=== PATIENT | male | born 1960 | race Caucasian/White ===

== ENCOUNTER 2022-07-05 09:54 | Observation (INO) ==
--- NOTE | 2022-06-08 11:29 | Anesthesiology Consultation ---
Date of Service June 08, 2022 Assessment & Plan (1) Encounter for pre-operative examination: Chart Review Chart Review: Acceptable Risk for Surgery and Patient NOT seen in Pre Admission Testing Per nursing assessment 05/31/22, patient denies any recent travel. No known Covid positive exposures or Covid related symptoms. No known Covid infection in the past 90 days. Pt is fully vaccinated for Covid. Will leave to surgeon's discretion if preop Covid testing needed History Surgery Operation Date: 06/03/22 08:05 Proposed Procedures p Cystoscopy, Ureteronephroscopy, Retrograde Pyelogram, with Possible Ureteral Dilation, Laser Destruction or Extraction of the Stone, Insertion or Exchange of Stent Catheter - Right - Destin García MD Operation Date: 07/05/22 11:45 Proposed Procedures p Robotic Laparoscopic Assisted Partial Nephrectomy - Left - Destin García MD Pt scheduled for Robotic Laparoscopic Assisted Partial Nephrectomy - Left- on 07/05/22 Height/Weight Height: 5 ft 7.5 in Weight: 102.058 kg Allergies Allergy/AdvReac Type Severity Reaction Status Date / Time Penicillins Allergy Intermediate HIVES Verified 06/06/22 08:52 Medications Home Medications Medication Instructions Recorded Confirmed Last Taken levothyroxine 50 mcg tablet 50 mcg PO QAM 11/18/20 06/06/22 Unknown sildenafil 100 mg tablet 100 mg PO DAILY PRN sexual 05/30/22 05/31/22 Unknown activity #20 tabs silodosin 8 mg capsule 8 mg PO DAILY #90 caps 05/30/22 06/06/22 Unknown aspirin 81 mg tablet 81 mg PO QAM 05/31/22 06/06/22 Unknown Past Medical History Medical History Benign localized prostatic hyperplasia with lower urinary tract symptoms (LUTS) 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 Hypothyroidism Kidney stones 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) hx w/ surgery Past Family History Family History Other No pertinent family history Past Surgical History Surgical History H/O knee surgery right History of mandibular surgery History of surgery Destruction of Malignant Lesion Arms X 3 - cutaneous lymphoma History of tonsillectomy and adenoidectomy Hx of lithotripsy S/P carpal tunnel release S/P colonoscopy Social History Smoking Status: Never smoker tobacco type: smokeless tobacco Do You Dip or Chew Tobacco: Yes (ADVISED) Hx Alcohol Use: No Hx Substance Use: No substance use type: does not use Testing Laboratory Results 05/31/22= WBC: 7.6 H/H: 16.1/45.9 PLATELETS: 258 SODIUM: 140 POTASSIUM: 4.2 CHLORIDE: 108 CO2: 24 BUN: 15 CREATININE: 1.0 GLUCOSE: 98 UA: Trace blood URINE CULTURE: <10,000 mixed bacterial alfonzo Electrocardiogram Date: 05/31/22 Findings: + NSR @ (75bpm ) Normal EKG per confirming provider Chest X-Ray Date: 05/31/22 Findings: + NAD Other Testing Abdomen/Pelvis CT 05/27/22= There is a 4 mm obstructing calculus at the right vesicoureteral junction. This causes mild right hydroureter. Additional nonobstructing bilateral renal calculi. There is a 5.1 cm complex enhancing lesion arising from the lower pole of the left kidney. This is highly concerning for a renal cell carcinoma and follow-up with urology is recommended. Colonic diverticulosis without CT evidence of acute diverticulitis. There are 2 pulmonary nodules seen at the lung bases measuring up to 4 mm. These are pathologically indeterminant but of low suspicion. Consider a follow-up chest CT in 3-6 months time for reassessment and full evaluation of the thorax. (Pt has since passed the kidney stone per 06/06/22 urology note)
[~2022-07-05 09:54] MED LIST: CIPROFLOXACIN / D5W 400 MG/200 ML BAG IV SCH; CLINDAMYCIN IV SCH; D5W IV SCH; LR 15ML/HR IV SCH; PREMIXED IV SCH
[2022-07-05] MEDS ORDERED: MIDAZOLAM HCL 1 MG/ML 2ML VIAL ONE (10:20)
[2022-07-05] MEDS ORDERED: fentaNYL citrate 100 MCG/2 ML VIAL ONE ×3 (10:20→14:16)
[2022-07-05] MEDS ORDERED: LIDOCAINE 2% 20 MG/ML 5 ML SYR IV ONE (10:20)
[2022-07-05] MEDS ORDERED: PROPOFOL IV EMULSION 10 MG/ML 20 ML VIAL IV ONE (10:20)
[2022-07-05] MEDS ORDERED: ROCURONIUM BROMIDE 10 MG/ML 5 ML VIAL IV ONE ×3 (10:20→15:56)
[2022-07-05] MEDS ORDERED: HYDROmorphone INJ 1 MG/ML SYRINGE IV PRN (11:33)
[2022-07-05] MEDS ORDERED: ONDANSETRON INJ 2 MG/ML 2 ML VIAL IV PRN (11:33)
[2022-07-05] MEDS ORDERED: ATROPINE SULFATE 0.1 MG/ML 10ML SYR IV PRN (11:33)
[2022-07-05] MEDS ORDERED: ePHEDrine sulfate 50 MG/ML AMP IV PRN (11:33)
--- NOTE | 2022-07-05 11:38 | History & Physical Bridge Note ---
Date of Service July 05, 2022 History & Physical Bridge Note I have examined the patient, reviewed the History & Physical and in the interval since the performance of the History & Physical I have noted the following changes of clinical significance: no changes noted
[2022-07-05] MEDS ORDERED: MANNITOL 25% 12.5 GM/50 ML VIAL IV ONE ×2 (11:49→12:27)
[2022-07-05] MEDS ORDERED: ACETAMINOPHEN 1000 MG/100 ML IV IV ONE (11:49)
[2022-07-05] MEDS ORDERED: SUGAMMADEX SODIUM 200 MG/2 ML VIAL IV ONE (11:50)
[2022-07-05] MEDS ORDERED: Nursing to Pharmacy Communication SCH (12:15)
[2022-07-05] MEDS ORDERED: BUPIVACAINE 0.5 % 5 MG/1 ML MPF 30ML VIAL ONE (12:22)
[2022-07-05] MEDS ORDERED: KETAMINE 50 MG/5 ML SYRINGE ONE (13:45)
[2022-07-05] MEDS ORDERED: TISSEEL FIBRIN SEALANT 10ML TOP ONE (14:49)
[2022-07-05] MEDS ORDERED: FLOSEAL HEMOSTATIC MATRIX 10ML TOP ONE (14:52)
[2022-07-05] MEDS ORDERED: SURGICEL ABSORB HEMOSTAT 2IN X 14IN TOP ONE (15:54)
[2022-07-05] MEDS ORDERED: ONDANSETRON INJ 2 MG/ML 2 ML VIAL ONE (16:10)
[2022-07-05] MEDS ORDERED: HYDROmorphone INJ 2 MG/ML SYR/VIAL ONE (16:11)
[2022-07-05] MEDS ORDERED: PHENYLEPHRINE 100MCG/ML 5ML SYR ONE (16:18)
--- NOTE | 2022-07-05 17:01 | Operative Report ---
PG Post Operative Report Pre & Post Diagnosis Operation Date: 06/03/22 08:05 <No data on this case meets the specified criteria> Operation Date: 07/05/22 11:25 Pre-Op Diagnosis: Left Renal Mass Post-Op Diagnosis: Left Renal Mass I identified the patient and participated in the time-out.: Yes Procedure Operation Date: 06/03/22 08:05 <No data on this case meets the specified criteria> Operation Date: 07/05/22 11:25 Actual Procedures p Robotic Laparoscopic Assisted Partial Nephrectomy - Left(Left) - Destin García MD Surgeon Destin García MD Purchasing Contracting Clerk Mimi Sanchez; Daisy Henderson Estimated Blood Loss 150 Findings Consistent with Post-Op Diagnosis Specimens Left renal mass Description of Procedure Patient was identified in the preoperative holding area, appropriate informed consents reviewed and completed and he was transported to the operating suite. Upon arrival he was placed in a lateral decubitus position with [id number] left side up. Adequate general anesthesia was achieved and he received clindamycin as a perioperative antibiotic. Veress needle was passed into the left upper quadrant and insufflation achieved. I marked ports in a standard robotic partial nephrectomy fashion and entered in the anticipated location of the camera port. Inspection revealed limited to healthy abdomen. Other ports were placed under direct vision. We then docked the robot and began to mobilize the colon. Mobilizing the colon helped to create some space but he has a large kidney with a significant mount of perinephric fat that continued to pose some challenges. We were able to dissect medial to the kidney and identify the gonadal vein. The anterior surface of the gonadal vein was followed until it encountered the inferior aspect of the renal vein. Just medial to this we were able to identify the aorta and an anterior arterial branch below the renal vein. Inspection of the imaging confirmed that there are 2 arteries with this being the lower of the 2. The main artery was identified just posterior to the main vein. After skeleton izing all the structures we turned our attention to the kidney. Took some meticulous dissection to be able to carry through the thick Gerota's fascia and identify the renal capsule. I expose the anterior surface of the kidney first followed by the lateral, inferior, medial and ultimately posterior aspects. As we performed this dissection I was able to visualize the tumor. I additionally performed ultrasound evaluation on multiple occasions to confirm my dissection was headed in appropriate path and exposing an appropriate amount of kidney. After completely exposing the mass and healthy parenchyma above the mass as well as the hilar structures, we prepared for the actual partial nephrectomy. 3 sutures were prepositioned into the abdomen. 12.5 g of mannitol was administered. We then placed a short curved bulldog clamp across the main artery followed by a short straight bulldog across the secondary artery and a long straight bulldog across the main renal vein. Functionally, I then performed a lower pole heminephrectomy versus resection of a third of the kidney. Care was taken to avoid encroachment upon the tumor and there was no tumor visualized on the deep margin of this resection. After entirely freeing the lower portion of the kidney, kidney reconstruction was initiated. I performed this closure in 2 layers running an additional deep layer which closed some of the collecting system and the vascular elements. I then closed the superficial elements utilizing a sliding clip technique. There were approximately 6 sutures passed across the kidney for full closure. We then unclamped the kidney in the reverse order in which it was clamped. Hemostasis was excellent. Warm ischemia time was 25 minutes. We immediately saw the kidney pink and returned to an appropriate color. At that time the kidney was collected in an Endo Catch bag. Floseal was placed over the defect followed by a small sheet of Surgicel and Tisseel. Gerota's fascia was partially reconstructed over the kidney. The robotic portion of the case was then concluded and we extracted the specimen through expansion of the lower medical assistant float port. This medical assistant float port was placed initially through a portion of the rectus muscle and I proceeded to close the oblique fascia as well as the rectus muscle. The rectus was closed posteriorly and anteriorly. Skin was then reapproximated, infiltrated with half percent Marcaine, and then closed with 4-0 Monocryl and Dermabond. At the end of the case patient was reversed of anesthesia and taken to the recovery room in stable condition. There were no complications. Mimi Sanchez and Daisy Henderson assisted from incision to closure. I attest to the content of the Intraoperative Record and any orders documented therein. Any exceptions are noted below.
[2022-07-05] MEDS: fentaNYL citrate 100 MCG/2 ML VIAL IV PRN ×3 (17:12→17:27)
[2022-07-05 17:19] LABS: Hematocrit (blood only) 39.9 % (40.1-51.0); Mean Corpuscular Hemoglobin 29.7 pg (25.0-34.0); Mean Corpuscular Hgb Conc 35.1 g/dL (32.0-36.0); Mean Corpuscular Volume 84.7 fL (80.0-100.0); Mean Platelet Volume 9.8 fL (9.4-12.4); Platelet Count 212 K/uL (130-400); RDW Coefficient of Variation 12.8 % (11.5-14.5); RDW Standard Deviation 39.7 fL (36.4-46.3); Red Blood Count 4.71 M/uL (4.63-6.08); White Blood Count 14.18 K/ul (4.8-10.8)
--- NOTE | 2022-07-05 17:32 | Anesthesiology Progress Note ---
Date of Service July 05, 2022 Anesthesia Post Procedure Vital Signs Vital Signs: Temp Pulse Resp BP Pulse Ox O2 Del Method O2 Flow Rate 07/05/22 17:20 85 18 129/74 95 Oxymask 5 07/05/22 17:10 84 18 130/76 96 Oxymask 5 07/05/22 17:00 79 18 115/72 95 Oxymask 5 07/05/22 16:53 36.7 C 81 18 120/72 96 Oxymask 5 07/05/22 10:14 36.8 C 75 20 140/95 98 Room Air Transfer of Care Handoff Completed per policy Notes Mental Status: alert / awake / arousable and participated in evaluation Patient Amnestic to Procedure: Yes Nausea / Vomiting: adequately controlled Pain: adequately controlled Airway Patency, RR, SpO2: stable & adequate BP & HR: stable & adequate Hydration State: stable & adequate Anesthetic Complications: no major complications apparent and Pt Satisfied with anesthetic care
[2022-07-05 17:35] LABS: Basophils # (auto) 0.04 K/uL (0-0.2); Basophils % (auto) 0.3 %; Eosinophils # (auto) 0.03 K/uL (0-0.50); Eosinophils % (auto) 0.2 %; Immature Granulocytes # (auto) 0.07 K/uL (0.00-0.02); Immature Granulocytes % (auto) 0.5 %; Lymphocytes # (auto) 0.82 K/uL (1.2-3.4); Lymphocytes % (auto) 5.8 %; Monocytes # (auto) 0.13 K/uL (0.24-0.82); Monocytes % (auto) 0.9 %; Neutrophils # (auto) 13.09 K/uL (1.4-6.5); Neutrophils % (auto) 92.3 %
[2022-07-05 17:39] LABS: BUN Creatinine Ratio 13.7 (10-20); Calcium 8.5 mg/dl (8.5-10.1); Est GFR (African American) 90.2 ml/min; Est GFR (Non-African American) 77.9 ml/min; Potassium 4.6 mmol/L (3.5-5.1)
[2022-07-05] MEDS: ALLERGY Noted to ORDERED Medication SCH ×5 (17:41→17:58)
[2022-07-05] MEDS ORDERED: HYDROmorphone INJ 0.5 MG/0.5 ML SYR ONE (17:53)
[2022-07-05] MEDS ORDERED: MoRPHine SULFATE 2 MG/ML CARP IV PRN (18:07)
[2022-07-05] MEDS ORDERED: CLINDAMYCIN PHOS 900 MG/6 ML VIAL IV SCH (18:07)
[2022-07-05] MEDS ORDERED: MoRPHine SULFATE 2 MG/ML CARP ONE (18:12)
[2022-07-05] MEDS: MoRPHine SULFATE 4 MG/ML 1 ML CARP\\VIAL IV PRN ×2 (18:13→22:38)
[2022-07-05] MEDS: LACTATED RINGER'S 1,000 ML IV SCH (18:43)
[2022-07-05] MEDS: ACETAMINOPHEN 325 MG TAB PO SCH (18:46)
[2022-07-05] MEDS: oxyCODONE HCL IR 5 MG TAB (IMMEDIATE RELEASE) PO PRN (19:56)
[2022-07-05] MEDS: CLINDAMYCIN/D5W 600 MG/50 ML PREMIX BAG IV SCH (19:57)
[2022-07-05] MEDS: ONDANSETRON INJ 2 MG/ML 2 ML VIAL IV PRN (22:43)
[2022-07-06] MEDS: ACETAMINOPHEN 325 MG TAB PO SCH ×3 (01:01→12:34)
[2022-07-06] MEDS: LACTATED RINGER'S 1,000 ML IV SCH ×4 (01:02→23:36)
[2022-07-06] MEDS: oxyCODONE HCL IR 5 MG TAB (IMMEDIATE RELEASE) PO PRN ×5 (01:06→22:07)
[2022-07-06] MEDS: CLINDAMYCIN/D5W 600 MG/50 ML PREMIX BAG IV SCH ×2 (03:49→12:33)
[2022-07-06] MEDS: LEVOTHYROXINE SODIUM 50 MCG TABLET PO SCH (06:24)
[2022-07-06] MEDS: ONDANSETRON INJ 2 MG/ML 2 ML VIAL IV PRN ×2 (07:08→16:57)
[2022-07-06] MEDS: ALLERGY Noted to ORDERED Medication SCH (07:15)
[2022-07-06 08:11] LABS: Basophils # (auto) 0.01 K/uL (0-0.2); Basophils % (auto) 0.1 %; Hematocrit (blood only) 37.6 % (40.1-51.0); Hemoglobin 12.7 g/dl (14.0-18.0); Immature Granulocytes # (auto) 0.07 K/uL (0.00-0.02); Immature Granulocytes % (auto) 0.6 %; Lymphocytes # (auto) 1.06 K/uL (1.2-3.4); Lymphocytes % (auto) 9.1 %; Mean Corpuscular Hemoglobin 29.3 pg (25.0-34.0); Mean Corpuscular Hgb Conc 33.8 g/dL (32.0-36.0); Mean Corpuscular Volume 86.6 fL (80.0-100.0); Mean Platelet Volume 10.4 fL (9.4-12.4); Monocytes # (auto) 0.82 K/uL (0.24-0.82); Monocytes % (auto) 7.1 %; Neutrophils # (auto) 9.66 K/uL (1.4-6.5); Neutrophils % (auto) 83.1 %; Platelet Count 238 K/uL (130-400); RDW Coefficient of Variation 12.9 % (11.5-14.5); RDW Standard Deviation 40.3 fL (36.4-46.3); Red Blood Count 4.34 M/uL (4.63-6.08); White Blood Count 11.62 K/ul (4.8-10.8)
[2022-07-06 08:45] LABS: BUN Creatinine Ratio 12.8 (10-20); Calcium 8.4 mg/dl (8.5-10.1); Creatinine Clr Calc Pharmacy 59.5 ml/min; Est GFR (African American) 57.1 ml/min; Est GFR (Non-African American) 49.2 ml/min
[2022-07-06] MEDS ORDERED: LEVOTHYROXINE SODIUM 50 MCG TABLET PO SCH (09:00)
[2022-07-06] MEDS: MoRPHine SULFATE 4 MG/ML 1 ML CARP\\VIAL IV PRN ×2 (09:36→14:21)
--- NOTE | 2022-07-06 11:27 | Urology Progress Note ---
Date of Service July 06, 2022 Assessment & Plan (1) Renal mass: Plan POD #1 s/p partial nephrectomy doing ok cont cath and IVF for now ambulate labs stable Admission and Anticipated Discharge Date Admission Date: July 05, 2022 Subjective doing ok after his partial nephrectomy some pain not hungry slightly nauseated slightly distended urine with a some blood - as expected Physical Exam Physical Exam: distended, but not acute incisions appropriate Results & Data ([facility]) Vital Signs (Past 12 Hours) Vital Signs Temp Pulse Resp BP Pulse Ox O2 Del Method O2 Flow Rate 07/06/22 07:51 36.8 C 90 16 119/74 94 Room Air 07/06/22 03:51 36.6 C 97 H 16 105/72 98 Nasal Cannula 2 PG Care Time/CCT Total # of Minutes Spent Total Time Spent with Patient: Total time spent is greater than 50% in coordination of care (as documented) at patient's floor/unit and/or counseling patient: Coding Level of Care Code None Diagnoses Renal mass N28.89
--- NOTE | 2022-07-06 14:06 | Hospitalist Consultation ---
Date of Consultation July 06, 2022 Assessment & Plan (1) Pre-syncope: Manjinder is a 62-year-old male with a past medical history of tinnitus, ureteral stones, renal mass, BPH who presented for scheduled lap assisted partial nephrectomy of a left renal mass on 07/05/2022. Syncope, suspected vasovagal Patient reports that he had tunnel vision and a prodrome of lightheadedness and did not pass out/lose consciousness completely. He was attempting to sit up from bed and had just received pain medicine shortly before this episode. 1 episode prior for lightheadedness/dizziness Hemoglobin 12.7 from baseline 14.0 preop subsequently stable Downtrending mild leukocytosis, likely reactive patient is on periprocedural clindamycin Creatinine baseline 1.02, postoperative 1.49 Glucose 158/141 Preop EKG: Normal sinus rhythm, QTC 426, no ST segment changes or territorial T wave changes. Repeat EKG pending Patient does have significantly increased abdominal pain postoperatively, reviewed with urology and given the extent of his surgery on reexamination feel this is appropriate for his operative course. Did discuss CT for evaluation, as long as hemoglobin remained stable and recheck has been currently stable 12.7 and clinical exam does not worsen may defer this at this time. Reviewed above with primary team, strongly suspicious for vasovagal while standing and with narcotic medication. We will follow work-up above and medicine sign off, if any concerns on repeat evaluation they will reach out for reassessment at that point. Left renal mass, s/p partial nephrectomy 07/05/2022 Management via primary team Continues on clindamycin every 8 hours CTA/P furred as noted Creatinine rise to 1.65 is expected and appropriate given clamping time and partial nephrectomy, did discuss [id number]. Trend at this time. Hypothyroidism Continue Synthroid 50 mcg p.o. every morning BPH On silodosin 8 mg BODY HANGER Temporarily held given vasovagal symptoms above, resume tomorrow if doing well Aspirin therapy Patient denies history of heart disease, vascular disease, colorectal cancer, family history of colorectal cancer, and strokes. Was recommended after age 50 to be on a daily aspirin. He last took this 06/27. Continue to hold DVT prophylaxis: Per primary team, SCDs Diet: Clears, supplemental IVF at 100 cc/h (2) Renal mass: (3) Tinnitus: (4) Benign localized prostatic hyperplasia with lower urinary tract symptoms (LUTS): History of Present Illness Attending Physician: Destin García MD History of Present Illness Manjinder is a 62-year-old male with a past medical history of tinnitus, ureteral stones, renal mass, BPH who presented for scheduled lap assisted partial nephrectomy of a left renal mass on 07/05/2022. Per op report: Required meticulous dissection of fascia, good hemostasis was achieved, and nephrectomy was uncomplicated with approximately 150 cc of blood loss. Patient seen at the bedside after transfer to [facility]. Patient earlier in the day was a code purple for a near syncopal event. Per patient and nursing staff patient was attempting to sit up at the side of the bed and got very lightheaded/dizzy and passed out. Reported his vasovagal syncope, patient reports that he did not pass out completely but did get very tired, have tunnel vision, and needed to lay back in bed and felt like this last for a couple of minutes. He had felt a little bit lightheaded in the morning after his pain medication as well, and notes that he did get morphine before this episode. He denies a past medical history of heart or lung disease, syncope, presyncope, arrhythmia, ND. No family history of these. At time of assessment he reports his biggest concern is his left abdominal pain and radiating pain from the right lower quadrant opposite his surgery. He reports he would like more pain medication as he is currently at a 78 out of 10 with deep breaths or palpation, and 6 at rest. He has not noticed any bleeding or bruising from his surgical site. Does have sanguinous/serosanguineous output into Underwood. Endorses a history of BPH for which he is on silodosin which she last took yesterday, denies any history of hypertension, heart disease, or vascular disease but was recommended after age 50 to take an aspirin daily which she has not taken since June 27. Also takes Synthroid. At time of assessment denies chest pain, chest pressure, lightheadedness, dizziness, shortness of breath, difficulty breathing. Does endorse left lower quadrant abdomen pain with some radiating right lower quadrant abdomen pain as noted above. Denies dysuria, Underwood in place. Is not currently lightheaded/dizzy, but does endorse that he feels uncomfortable with pain and that makes him a little bit more lightheaded Medical History: Reviewed Medications: Reviewed Surgical History: Reviewed Allergies: Reviewed, penicillin hives Family history: Patient denies significant history of early heart disease, lung disease, syncope, presyncope, arrhythmia, sudden cardiac in himself in first-degree relatives Social History: 58-year history of 1 can of chew per day. No cigarette use. Denies any alcohol use. No recreational drug use Code Status: Full code Allergies Allergy/AdvReac Type Severity Reaction Status Date / Time Penicillins Allergy Intermediate HIVES Verified 07/05/22 10:20 Home Medications Medication Instructions Recorded Confirmed Type levothyroxine 50 mcg tablet 50 mcg PO QAM 11/18/20 07/05/22 History sildenafil 100 mg tablet 100 mg PO DAILY PRN sexual 05/30/22 07/05/22 Rx activity #20 tabs silodosin 8 mg capsule 8 mg PO DAILY #90 caps 05/30/22 07/05/22 Rx aspirin 81 mg tablet 81 mg PO QAM 05/31/22 07/05/22 History Patient History Medical History Benign localized prostatic hyperplasia with lower urinary tract symptoms (LUTS) 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 Hypothyroidism Kidney stones 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) hx w/ surgery Surgical History H/O knee surgery right History of mandibular surgery History of surgery Destruction of Malignant Lesion Arms X 3 - cutaneous lymphoma History of tonsillectomy and adenoidectomy Hx of lithotripsy S/P carpal tunnel release S/P colonoscopy Family History Other No pertinent family history Social History Smoking Status: Never smoker Second Hand Exposure: No; Do You Dip or Chew Tobacco: Yes (ADVISED); Tobacco Cessation Education Requested by Patient: No Hx Alcohol Use: No Hx Substance Use: No Preferred Language: Turkmen Communication Ability: Effective Gum Dipper Required: No Beliefs That Will Affect Care: None marital status: Single Current Living Situation: Alone Other Information That Helps Us Care for You: No Feels Safe at Home: Yes Safety Concerns: Feels Safe At This Time Assistive Devices: None Review of Systems Review of Systems: All systems reviewed & are unremarkable except as noted in Subjective Physical Exam Physical Exam: General: A&Ox3. NAD. Cooperative. HEENT: Atraumatic, normocephalic. Hearing grossly intact Pulm: CTAB A&P. -wheezes, -rales, -rhonchi. Symmetrical chest rise. No increase in work of breathing. No respiratory distress. Cardiac: RRR, -mrg. Radial pulses intact and symmetrical. Abdominal: Focally tender at left lower quadrant, mild right lower quadrant tenderness. Postoperative incisions at left abdomen are intact without erythema, warmth, discharge, or dehiscence. : Underwood in place draining serosanguineous/sanguinous material Results & Data Results & Data ([facility]) Vital Signs (Past 12 Hours) Vital Signs Temp Pulse Resp BP BP Pulse Ox O2 Del Method 07/06/22 13:58 36.8 C 79 20 119/76 94 Room Air 07/06/22 10:00 Room Air 07/06/22 11:40 37.0 C 86 16 119/77 96 Room Air 07/06/22 07:51 36.8 C 90 16 119/74 94 Room Air 07/06/22 03:51 36.6 C 97 H 16 105/72 98 Nasal Cannula O2 Flow Rate 07/06/22 13:58 07/06/22 10:00 07/06/22 11:40 07/06/22 07:51 07/06/22 03:51 2 PG Care Time/CCT Total # of Minutes Spent Total Time Spent with Patient: Total time spent is greater than 50% in coordination of care (as documented) at patient's floor/unit and/or counseling patient: Coding Level of Care Code 72742 Inpt Consult Level 4 Diagnoses Pre-syncope R55 Renal mass N28.89 Tinnitus H93.19 Benign localized prostatic hyperplasia with lower urinary tract symptoms (LUTS) N40.1
[2022-07-06 14:21] LABS: Basophils # (auto) 0.02 K/uL (0-0.2); Basophils % (auto) 0.1 %; Hematocrit (blood only) 36.9 % (40.1-51.0); Hemoglobin 12.7 g/dl (14.0-18.0); Immature Granulocytes # (auto) 0.06 K/uL (0.00-0.02); Immature Granulocytes % (auto) 0.4 %; Lymphocytes # (auto) 2.09 K/uL (1.2-3.4); Lymphocytes % (auto) 14.8 %; Mean Corpuscular Hemoglobin 29.3 pg (25.0-34.0); Mean Corpuscular Hgb Conc 34.4 g/dL (32.0-36.0); Mean Corpuscular Volume 85.2 fL (80.0-100.0); Mean Platelet Volume 10.5 fL (9.4-12.4); Monocytes # (auto) 1.19 K/uL (0.24-0.82); Monocytes % (auto) 8.4 %; Neutrophils # (auto) 10.73 K/uL (1.4-6.5); Neutrophils % (auto) 76.3 %; Platelet Count 277 K/uL (130-400); Red Blood Count 4.33 M/uL (4.63-6.08); White Blood Count 14.09 K/ul (4.8-10.8)
[2022-07-06 14:32] LABS: BUN Creatinine Ratio 11.5 (10-20); Calcium 8.6 mg/dl (8.5-10.1); Creatinine Clr Calc Pharmacy 53.8 ml/min; Est GFR (African American) 50.4 ml/min; Est GFR (Non-African American) 43.5 ml/min; Potassium 3.7 mmol/L (3.5-5.1)
[2022-07-06] MEDS: ACETAMINOPHEN 1,000 MG/100 ML VIAL IV SCH (18:11)
[2022-07-06] MEDS: DOCUSATE SODIUM 100 MG CAP PO SCH (22:07)
[2022-07-07] MEDS: ACETAMINOPHEN 1,000 MG/100 ML VIAL IV SCH ×3 (05:09→17:59)
[2022-07-07] MEDS: LACTATED RINGER'S 1,000 ML IV SCH (07:09)
[2022-07-07] MEDS: LEVOTHYROXINE SODIUM 50 MCG TABLET PO SCH (07:09)
--- NOTE | 2022-07-07 07:56 | Urology Progress Note ---
Date of Service July 07, 2022 Assessment & Plan (1) Renal mass: Plan: POD #2 s/p partial nephrectomy Pain control was an issue yesterday and likely led to a vasovagal event which prompted a rapid response. His labs were stable. Medicine was consulted and di d not find anything concerning. Patient reports that pain control is much better today and overall is improving Continue pain regimen Ensure patient is able to ambulate and if so, likely DC catheter later today Follow-up morning labs DC planning will be dependent on how patient progresses today Admission and Anticipated Discharge Date Admission Date: July 05, 2022 Subjective Rapid response called on patient yesterday but appeared to be vasovagal response. Labs were stable. He reports feeling better today. Pain control is improved. He has been afebrile with stable vitals. Catheter draining without issue. Labs are still pending. Tolerating diet. Yet to ambulate out of room or passed flatus. Review of Systems Review of Systems: 14 point review of systems negative outside of what is listed above in HPI Physical Exam Physical Exam: General: Alert and oriented, no acute distress HEENT: Normocephalic, mucous membranes moist Pulmonary: Nonlabored respirations Abdomen: Distended, appropriately tender to palpation, nonperitoneal. Incisions clean dry and intact. : Underwood catheter draining lloyd urine Extremities: Moves all 4 spontaneously Neuro: No gross deficits Skin: Warm, dry, no rashes noted Results & Data ([facility]) Vital Signs (Past 12 Hours) Vital Signs Temp Pulse Pulse Resp BP Pulse Ox O2 Del Method 07/07/22 07:39 Room Air 07/07/22 07:00 89 07/07/22 06:15 98 H 07/07/22 03:00 36.9 C 89 20 105/61 92 Room Air 07/06/22 22:00 37 C 96 H 20 131/78 93 Room Air PG Care Time/CCT Total # of Minutes Spent Total Time Spent with Patient: Total time spent is greater than 50% in coordination of care (as documented) at patient's floor/unit and/or counseling patient: Coding Level of Care Code 62731 Subseq Hosp Care Lvl 2 Diagnoses Renal mass N28.89
[2022-07-07] MEDS: DOCUSATE SODIUM 100 MG CAP PO SCH ×2 (09:29→21:13)
[2022-07-07] MEDS: CALCIUM CARBONATE 500 MG CHEWABLE TAB PO PRN ×2 (10:32→17:14)
[2022-07-07 11:05] LABS: BUN Creatinine Ratio 13.1 (10-20); Calcium 7.7 mg/dl (8.5-10.1); Creatinine Clr Calc Pharmacy 64.8 ml/min; Est GFR (African American) 63.2 ml/min; Est GFR (Non-African American) 54.5 ml/min; Potassium 3.8 mmol/L (3.5-5.1)
[2022-07-07] MEDS: TAMSULOSIN HCL 0.4 MG CAP PO SCH (11:12)
[2022-07-07 13:11] LABS: Basophils # (auto) 0.01 K/uL (0-0.2); Basophils % (auto) 0.1 %; Eosinophils # (auto) 0.02 K/uL (0-0.50); Eosinophils % (auto) 0.2 %; Hemoglobin 9.1 g/dl (14.0-18.0); Immature Granulocytes # (auto) 0.04 K/uL (0.00-0.02); Immature Granulocytes % (auto) 0.4 %; Lymphocytes # (auto) 0.91 K/uL (1.2-3.4); Lymphocytes % (auto) 9.4 %; Mean Corpuscular Hemoglobin 29.2 pg (25.0-34.0); Mean Corpuscular Hgb Conc 33.7 g/dL (32.0-36.0); Mean Corpuscular Volume 86.5 fL (80.0-100.0); Mean Platelet Volume 10.2 fL (9.4-12.4); Monocytes # (auto) 0.68 K/uL (0.24-0.82); Neutrophils # (auto) 8.03 K/uL (1.4-6.5); Neutrophils % (auto) 82.9 %; Platelet Count 161 K/uL (130-400); RDW Coefficient of Variation 13.1 % (11.5-14.5); RDW Standard Deviation 40.8 fL (36.4-46.3); Red Blood Count 3.12 M/uL (4.63-6.08); White Blood Count 9.69 K/ul (4.8-10.8)
[2022-07-07] MEDS: oxyCODONE HCL IR 5 MG TAB (IMMEDIATE RELEASE) PO PRN (14:53)
[2022-07-08] MEDS: ACETAMINOPHEN 1,000 MG/100 ML VIAL IV SCH ×3 (03:04→17:52)
[2022-07-08] MEDS: LEVOTHYROXINE SODIUM 50 MCG TABLET PO SCH (05:33)
[2022-07-08] MEDS: TAMSULOSIN HCL 0.4 MG CAP PO SCH (08:13)
[2022-07-08] MEDS: CALCIUM CARBONATE 500 MG CHEWABLE TAB PO PRN ×3 (08:13→23:04)
[2022-07-08] MEDS: DOCUSATE SODIUM 100 MG CAP PO SCH ×3 (08:14→20:22)
[2022-07-08] MEDS: ONDANSETRON INJ 2 MG/ML 2 ML VIAL IV PRN ×2 (08:16→18:10)
[2022-07-08] MEDS: oxyCODONE HCL IR 5 MG TAB (IMMEDIATE RELEASE) PO PRN ×2 (08:16→16:28)
[2022-07-08 09:13] LABS: Basophils # (auto) 0.02 K/uL (0-0.2); Basophils % (auto) 0.2 %; Eosinophils # (auto) 0.02 K/uL (0-0.50); Eosinophils % (auto) 0.2 %; Hemoglobin 10.3 g/dl (14.0-18.0); Immature Granulocytes # (auto) 0.08 K/uL (0.00-0.02); Immature Granulocytes % (auto) 0.7 %; Mean Corpuscular Hemoglobin 29.3 pg (25.0-34.0); Mean Corpuscular Hgb Conc 34.3 g/dL (32.0-36.0); Mean Corpuscular Volume 85.2 fL (80.0-100.0); Mean Platelet Volume 10.2 fL (9.4-12.4); Monocytes # (auto) 0.71 K/uL (0.24-0.82); Monocytes % (auto) 6.4 %; Neutrophils # (auto) 9.08 K/uL (1.4-6.5); Neutrophils % (auto) 82.5 %; Platelet Count 182 K/uL (130-400); RDW Coefficient of Variation 12.7 % (11.5-14.5); Red Blood Count 3.52 M/uL (4.63-6.08); White Blood Count 11.01 K/ul (4.8-10.8)
--- NOTE | 2022-07-08 09:15 | Urology Progress Note ---
Date of Service July 08, 2022 Assessment & Plan (1) Renal mass: Plan: - POD #3 s/p partial nephrectomy with Dr. García - Pain control improved, doing well on PO oxycodone - Continue pain regimen - Hgb improved to 10.3 today - Voiding well after Underwood removal yesterday - Ambulating - Incisions appropriate - Continue full liquid diet, will advance as tolerated - DC planning will be dependent on how patient progresses today, anticipate home tomorrow if he continues to progress. Admission and Anticipated Discharge Date Admission Date: July 05, 2022 Supervising Physician Co-Signing Physician Notes Making progress. Subjectively feeling much better now. Labs stable. Urine clearing still a bit distended hoping he will be ready for d/c home tomorrow Subjective No acute issues overnight. Pain improved. Underwood was removed yesterday and he is voiding without difficulty. He is ambulating. Fluids discontinued yesterday and diet advanced to full liquids. He drank some milk this AM and says it is not agreeing with him, notes some nausea. No fever or chills. Review of Systems Constitutional: as per Subjective / HPI Gastrointestinal: as per Subjective / HPI Genitourinary: + as per Subjective / HPI Physical Exam Constitutional: well developed and well nourished; no acute distress Respiratory: normal respiratory effort; no respiratory distress and no labored breathing Gastrointestinal (Abdomen): soft, mildly distended, tender near incisions Musculoskeletal: Head/Neck/Chest: normocephalic and head atraumatic Skin: Surgical incisions healthy, well approximated, dermabond intact. Neurologic: moves all extremities and awake Psychiatric: Orientation: alert and oriented x 3 Results & Data ([facility]) Vital Signs (Past 12 Hours) Vital Signs Temp Pulse Pulse Resp BP BP Pulse Ox 07/08/22 08:37 07/08/22 07:00 36.9 C 96 H 18 146/88 H 92 07/08/22 07:01 94 H 07/08/22 03:22 37.4 C 105 H 20 146/80 H 91 07/08/22 00:15 97 H 07/07/22 22:52 37.0 C 104 H 18 145/78 H 92 O2 Del Method 07/08/22 08:37 Room Air 07/08/22 07:00 Room Air 07/08/22 07:01 07/08/22 03:22 Room Air 07/08/22 00:15 07/07/22 22:52 Room Air PG Care Time/CCT Total # of Minutes Spent Total Time Spent with Patient: Total time spent is greater than 50% in coordination of care (as documented) at patient's floor/unit and/or counseling patient: Coding Level of Care Code None Diagnoses Renal mass N28.89
[2022-07-08 09:52] LABS: Calcium 8.5 mg/dl (8.5-10.1); Creatinine Clr Calc Pharmacy 63.2 ml/min; Est GFR (African American) 58.5 ml/min; Est GFR (Non-African American) 50.5 ml/min; Potassium 3.5 mmol/L (3.5-5.1)
[2022-07-08] MEDS ORDERED: MAGNESIUM HYDROXIDE SUSP 30 ML UDC PO ONE (17:44)
[2022-07-08] MEDS ORDERED: CALCIUM CARBONATE 500 MG CHEWABLE TAB PO ONE (17:47)
--- NOTE | 2022-07-08 20:25 | XRay Report ---
KUB HISTORY: Acute generalized abdominal pain suspected ileus COMPARISON: CT 05/27/2022 FINDINGS: Air-filled gaseous distention of both large and small bowel. Small bowel loops measure up t o 3.6 cm transversely. The patient's known nephrolithiasis are obscured by bowel gas. No pneumoperit oneum or pneumatosis. No fracture. IMPRESSION: Gaseous distention of both large and small bowel suggestive of ileus. Follow-up recommended to exclud e the less likely possibility of a distal obstruction. ACT 112: Negative or not required by law. The above report was generated using voice recognition software. It may contain grammatical, syntax o r spelling errors. Electronically signed by: George Arizmendi M.D. 07/08/2022 8:24 PM
[2022-07-09] MEDS: oxyCODONE HCL IR 5 MG TAB (IMMEDIATE RELEASE) PO PRN ×3 (00:10→13:57)
--- NOTE | 2022-07-09 01:50 | Communication Note ---
Date of Service: July 09, 2022 I was called by RN at approximately 1:15 AM secondary to KUB report. KUB report showed findings suggestive of an ileus. I visited with the patient at the bedside. His vitals were reviewed his blood pressure is noted to be 158/94 with a pulse of 95. His respirations are 22 and nonlabored pulse ox is 89% on room air. The patient notes that his abdomen feels "uncomfortable." He denies any nausea or vomiting. He does report that he is having GERD but specifically denies any chest pain. No fevers, shakes, or chills. On exam patient's abdomen is moderately distended and tympanic to percussion. There is some minor pain with palpation. Bowel sounds are present. I discussed with the patient that he has an ileus and noted to him that we could attempt to improve him symptomatically by placing an NG tube but he wished to avoid this modality at this time. I did encourage him to get up and walk which would hopefully help resolve his ileus. Did discuss with him that if he has development of nausea or vomiting an NG tube may need to be reconsidered. Concerning his GERD I did discuss with the nurse who notes that the patient has received Tums. I will order a dose of intravenous Pepcid to see if this helps alleviate some of his symptoms. I will also make the patient n.p.o. for the present time until his ileus has resolved.
[2022-07-09] MEDS ORDERED: FAMOTIDINE 20 MG in SYRINGE 3 ML IV ONE (01:55)
[2022-07-09] MEDS: ACETAMINOPHEN 1,000 MG/100 ML VIAL IV SCH ×2 (02:04→10:56)
[2022-07-09] MEDS: ONDANSETRON INJ 2 MG/ML 2 ML VIAL IV PRN (02:11)
[2022-07-09] MEDS: LACTATED RINGER'S 1,000 ML IV SCH ×2 (02:20→15:22)
--- NOTE | 2022-07-09 03:15 | Communication Note ---
Date of Service: July 09, 2022 I was notified by RN that patient had a large emesis following my previous visit with the patient. Patient was revisited at bedside and his abdomen remains distended and tympanic to percussion. Patient appears uncomfortable. I recommended to the patient that we place an NG tube for the present time which will help obtain symptomatic relief from his abdominal discomfort/ileus. The patient has agreed to this modality. RN to place NG tube. We will place the NG tube to suction and we will provide maintenance IV fluids.
[2022-07-09] MEDS: LEVOTHYROXINE SODIUM 50 MCG TABLET PO SCH (05:30)
[2022-07-09] MEDS ORDERED: bisacodyL 10 MG SUPP PR STA (06:54)
[2022-07-09] MEDS: TAMSULOSIN HCL 0.4 MG CAP PO SCH (08:16)
[2022-07-09] MEDS: DOCUSATE SODIUM 100 MG CAP PO SCH ×2 (08:17→20:41)
--- NOTE | 2022-07-09 08:20 | XRay Report ---
KUB HISTORY: NGT placement COMPARISON: None. FINDINGS: The nasogastric tube terminates in the distal stomach. There is persisting gaseous distenti on of the large and small bowel. No renal calculi. No ureteral calculi. No pneumoperitoneum or pneum atosis. IMPRESSION: 1. NG tube terminates in the distal stomach. 2. Persisting gaseous distention of the large and small bowel. ACT 112: Negative or not required by law. Electronically signed by: Berny Brice M.D. 07/09/2022 8:18 AM
--- NOTE | 2022-07-09 09:00 | Urology Progress Note ---
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 Gradual recovery from the surgery with prolonged postoperative ileus which is still gradually resolving He required NGT placement last night We will continue supportive care and hope to see his bowels start to open in the next 24 to 48 hours Await labs this morning We reviewed pathology Limit diet to ice chips and swabs for his mouth for now Dulcolax suppositories ordered Admission and Anticipated Discharge Date Admission Date: July 05, 2022 Subjective Has been modestly distended for the past few days without nausea or vomiting, unfortunately this progressed last night and he ended up vomiting and required NG tube placement His KUB does show a postoperative ileus This will gradually continue to resolve over the next few days Feels okay with NG tube in place aside from the nasal and throat discomfort Abdomen still moderately distended Post tube placement his KUB shows good positioning of the tube Labs this morning are pending Continue bowel rest and await resolution of the postoperative ileus He is understanding of the situation Physical Exam Physical Exam: NG tube in place draining gastric contents/slightly bilious Constitutional: well developed and well nourished Respiratory: no respiratory distress Cardiovascular: Extremities: no pedal edema Gastrointestinal (Abdomen): Moderately distended, incisions appropriate, no significant ecchymosis Results & Data ([facility]) Vital Signs (Past 12 Hours) Vital Signs Temp Pulse Pulse Resp BP BP Pulse Ox 07/09/22 07:40 36.9 C 102 H 18 146/90 H 92 07/09/22 07:18 99 H 07/09/22 05:00 37 C 98 H 16 137/88 89 L 07/09/22 01:37 95 H 07/09/22 01:37 07/08/22 23:56 37.4 C 108 H 22 158/94 H 89 L O2 Del Method 07/09/22 07:40 Room Air 07/09/22 07:18 07/09/22 05:00 Room Air 07/09/22 01:37 07/09/22 01:37 Room Air 07/08/22 23:56 Room Air PG Care Time/CCT Total # of Minutes Spent Total Time Spent with Patient: Total time spent is greater than 50% in coordination of care (as documented) at patient's floor/unit and/or counseling patient: Coding Level of Care Code None Diagnoses Renal cell carcinoma C64.9
[2022-07-09 09:19] LABS: Basophils # (auto) 0.02 K/uL (0-0.2); Basophils % (auto) 0.2 %; Eosinophils # (auto) 0.02 K/uL (0-0.50); Eosinophils % (auto) 0.2 %; Hematocrit (blood only) 33.2 % (40.1-51.0); Hemoglobin 11.4 g/dl (14.0-18.0); Immature Granulocytes # (auto) 0.08 K/uL (0.00-0.02); Immature Granulocytes % (auto) 0.7 %; Lymphocytes # (auto) 0.81 K/uL (1.2-3.4); Lymphocytes % (auto) 7.3 %; Mean Corpuscular Hemoglobin 29.1 pg (25.0-34.0); Mean Corpuscular Hgb Conc 34.3 g/dL (32.0-36.0); Mean Corpuscular Volume 84.7 fL (80.0-100.0); Mean Platelet Volume 10.4 fL (9.4-12.4); Monocytes # (auto) 0.68 K/uL (0.24-0.82); Monocytes % (auto) 6.2 %; Neutrophils # (auto) 9.44 K/uL (1.4-6.5); Neutrophils % (auto) 85.4 %; Platelet Count 251 K/uL (130-400); RDW Coefficient of Variation 12.6 % (11.5-14.5); RDW Standard Deviation 38.4 fL (36.4-46.3); Red Blood Count 3.92 M/uL (4.63-6.08); White Blood Count 11.05 K/ul (4.8-10.8)
[2022-07-09 09:46] LABS: Calcium 9.2 mg/dl (8.5-10.1); Creatinine Clr Calc Pharmacy 61.3 ml/min; Est GFR (African American) 56.6 ml/min; Est GFR (Non-African American) 48.8 ml/min; Potassium 3.8 mmol/L (3.5-5.1)
--- NOTE | 2022-07-10 00:33 | Communication Note ---
Date of Service: July 10, 2022 I was contacted by nurse at approximately 11:49 PM with concerns that this patient was having intermittent hypoxia. It was noted the patient had several episodes where his pulse ox went to approximately 85%. I returned nurses page approximately 3 minutes later and ordered a portable chest x-ray. I then visited with patient at the bedside. At the time of my arrival at bedside x-ray was performing their study. Chest x- ray was reviewed immediately and I did not appreciate any discrete infiltrates. It did appear however, that the patient had bilateral basilar atelectasis. Upon interview with the patient he notes the only thing currently bothering him is discomfort from the NG tube that is in place. He does note that he had a bowel movement earlier this evening and he also has been passing small amounts of flatus. He does feel however that his abdomen remains markedly distended. He specifically denies any shortness of breath. He specifically denies any pleuritic chest pain. He denies any calf tenderness. He does note some minor pain near his surgical incisions. He also notes some minor abdominal discomfort due to the distention. Patient's vital signs showed a blood pressure is 158/79. This clinician checked the patient's pulse oximetry personally and on room air pulse ox was 91 to 93%. Pulse was approximately 92 bpm. His respirations were approximately 16/min and were nonlabored. On physical exam cardiovascular exam revealed regular rate and rhythm. Patient had clear breath sounds bilaterally without wheezing or rhonchi, however the breath sounds were decreased at bases. Patient's abdomen remains moderately distended with hypoactive bowel sounds. Extremities reveal his hands and feet are warm and nonmottled. There is no calf swelling bilaterally. There is no calf tenderness bilaterally. I suspect the patient's intermittent hypoxia is secondary to atelectasis....... this is likely in part due to the patient's ileus and abdominal distention preventing the patient from taking deep breaths. I discussed with the patient the importance of using his incentive spirometer several times each hour while he is awake and he expresses understanding. I also expressed to the patient that it is important to ambulate as able during his postoperative course. Review of medications show the patient is not receiving anything for DVT prevention (he does have SCDs ordered). I discussed the case with Dr. García over the phone and he notes that at this time it is safe from a surgical perspective to initiate chemical means of DVT prevention; therefore I have ordered subcutaneous heparin 5000 units every 8 hours. I would be hesitant to order a CT scan of the chest to evaluate for PE at this time as the patient is noted to have a slightly elevated creatinine and has just undergone a partial nephrectomy. Following my initial evaluation the patient was revisited and he appeared comfortable. His pulse ox remained greater than 90% on room air. We will continue to follow closely. I did discuss the above plan with the nurse attending to the patient on mine shifter.
[2022-07-10] MEDS: HEPARIN SOD 5,000 UNIT/0.5 ML VIAL SQ SCH ×4 (01:07→21:40)
[2022-07-10] MEDS: LACTATED RINGER'S 1,000 ML IV SCH ×3 (04:53→21:41)
[2022-07-10] MEDS: LEVOTHYROXINE SODIUM 50 MCG TABLET PO SCH (05:48)
[2022-07-10 06:52] LABS: Basophils # (auto) 0.02 K/uL (0-0.2); Basophils % (auto) 0.2 %; Eosinophils # (auto) 0.14 K/uL (0-0.50); Eosinophils % (auto) 1.5 %; Hematocrit (blood only) 32.2 % (40.1-51.0); Hemoglobin 11.1 g/dl (14.0-18.0); Immature Granulocytes # (auto) 0.06 K/uL (0.00-0.02); Immature Granulocytes % (auto) 0.6 %; Lymphocytes # (auto) 1.45 K/uL (1.2-3.4); Lymphocytes % (auto) 15.7 %; Mean Corpuscular Hemoglobin 29.2 pg (25.0-34.0); Mean Corpuscular Hgb Conc 34.5 g/dL (32.0-36.0); Mean Corpuscular Volume 84.7 fL (80.0-100.0); Monocytes # (auto) 0.83 K/uL (0.24-0.82); Neutrophils # (auto) 6.76 K/uL (1.4-6.5); Platelet Count 307 K/uL (130-400); RDW Coefficient of Variation 12.8 % (11.5-14.5); RDW Standard Deviation 39.2 fL (36.4-46.3); White Blood Count 9.26 K/ul (4.8-10.8)
[2022-07-10 07:22] LABS: BUN Creatinine Ratio 16.8 (10-20); Calcium 9.1 mg/dl (8.5-10.1); Creatinine Clr Calc Pharmacy 59.8 ml/min; Est GFR (African American) 54.4 ml/min; Est GFR (Non-African American) 46.9 ml/min; Potassium 3.3 mmol/L (3.5-5.1)
[2022-07-10] MEDS: TAMSULOSIN HCL 0.4 MG CAP PO SCH (07:59)
[2022-07-10] MEDS: DOCUSATE SODIUM 100 MG CAP PO SCH ×2 (07:59→21:45)
[2022-07-10] MEDS: bisacodyL 10 MG SUPP PR PRN ×2 (07:59→11:26)
[2022-07-10] MEDS: oxyCODONE HCL IR 5 MG TAB (IMMEDIATE RELEASE) PO PRN ×2 (08:00→16:04)
--- NOTE | 2022-07-10 08:11 | XRay Report ---
XR chest 1V portable HISTORY: hypoxia COMPARISON: Chest 09/27/2011. FINDINGS: There are low lung volumes. No pneumothorax. The heart is normal in size. Nasogastric tube terminates in the stomach. There are few left basilar linear densities. Otherwise, no focal lung cons olidations to suggest a pneumonia. No evidence for pulmonary edema. No pleural effusions. IMPRESSION: 1. Low lung volumes with a few left basilar linear densities suggesting subsegmental atelectasis. 2. Nasogastric tube terminates in the stomach. ACT 112: Negative or not required by law. Electronically signed by: Berny Brice M.D. 07/10/2022 8:10 AM
--- NOTE | 2022-07-10 09:41 | Urology Progress Note ---
Date of Service July 10, 2022 Assessment & Plan (1) Renal cell carcinoma: Plan: Status post left partial nephrectomy for papillary renal cell carcinoma Postoperative ileus still not yet resolved Continue supportive care Continue NG tube Hope to see improvement in the next 24 hours Could consider some peripheral nutrition if no improvement by tomorrow Admission and Anticipated Discharge Date Admission Date: July 05, 2022 Subjective Uncomfortable with NG tube in place Oxygen saturations improved when he takes deeper breaths and uses incentive spirometer Abdominal discomfort from distention Unfortunately he has not yet opened up in regard to his bowels He did have a small bowel movement but after suppository yesterday and reports that he passed a small amount of gas yesterday Labs are stable Stressed the need to continue ambulation Will increase IV fluids Supplement potassium Maintain NG tube for now Repeat KUB later today to monitor his progress Repeat Dulcolax suppository this morning Physical Exam Physical Exam: Abdomen distended, modestly tender NG tube in place [facility]) Vital Signs (Past 12 Hours) Vital Signs Temp Pulse Pulse Resp BP Pulse Ox O2 Del Method 07/10/22 08:00 Room Air 07/10/22 09:23 36.9 C 109 H 20 153/94 H 95 Room Air 07/10/22 07:44 37.1 C 100 H 18 164/90 H 92 Room Air 07/10/22 07:00 99 H 07/10/22 03:43 37.6 C H 97 H 20 153/83 H 88 L Room Air 07/10/22 00:41 93 H 07/09/22 23:00 36.9 C 97 H 18 158/79 H 87 L Room Air PG Care Time/CCT Total # of Minutes Spent Total Time Spent with Patient: Total time spent is greater than 50% in coordination of care (as documented) at patient's floor/unit and/or counseling patient: Coding Level of Care Code None Diagnoses Renal cell carcinoma C64.9
[2022-07-10] MEDS: POTASSIUM CHLORIDE / WTR 10 MEQ/100 ML PLCT IV SCH ×3 (09:47→11:55)
--- NOTE | 2022-07-10 12:04 | XRay Report ---
XR KUB/Abdomen 1 view CLINICAL HISTORY: ileus TECHNIQUE: 1 view of the abdomen was obtained. Comparison: Comparison is made to abdomen radiograph 07/09/2022 FINDINGS: Enteric tube tip and side port remain in the stomach. The osseous structures are grossly unremarkable . Numerous distended loops of small bowel measure up to 42 mm in diameter, increased from prior exam. Gaseous distention of the colon is seen. IMPRESSION: Redemonstration of gaseous distention of the large and small bowel, slightly increased from prior exa m. ACT 112: Negative or not required by law. Electronically signed by: Gilbert Rapp M.D. 07/10/2022 12:03 PM
[2022-07-10] MEDS: CALCIUM CARBONATE 500 MG CHEWABLE TAB PO PRN (14:19)
[2022-07-11] MEDS: ONDANSETRON INJ 2 MG/ML 2 ML VIAL IV PRN ×2 (01:50→10:59)
[2022-07-11] MEDS: HEPARIN SOD 5,000 UNIT/0.5 ML VIAL SQ SCH ×2 (06:05→14:35)
--- NOTE | 2022-07-11 08:05 | Urology Progress Note ---
Date of Service July 11, 2022 Assessment & Plan (1) Renal cell carcinoma: Plan: Status post left robotic partial nephrectomy for papillary renal cell carcinoma Postoperative recovery has been delayed because of some slow resolution of a postoperative ileus Now back on track NG tube out this morning Labs pending Clear liquid diet this morning, advance if he tolerates it and hope for discharge within the next 24 hours Admission and Anticipated Discharge Date Admission Date: July 05, 2022 Subjective Substantial improvement in the past 24 hours Had several small bowel movements and has been passing significant mount of flatus Abdominal discomfort has decreased substantially He has developed some left flank ecchymosis but otherwise feels very well Seems to be much more comfortable today Physical Exam Physical Exam: Incisions appropriate, significant posterior left flank ecchymosis Denies any hematuria NG tube still in place Abdomen soft and nontender Results & Data ([facility]) Vital Signs (Past 12 Hours) Vital Signs Temp Pulse Pulse Resp BP BP Pulse Ox 07/11/22 07:00 36.8 C 92 H 18 164/92 H 93 07/11/22 07:06 96 H 07/11/22 04:02 107 H 07/11/22 03:46 36.8 C 90 18 138/80 92 07/10/22 23:09 36.4 C L 103 H 20 146/83 H 92 O2 Del Method 07/11/22 07:00 Room Air 07/11/22 07:06 07/11/22 04:02 07/11/22 03:46 Room Air 07/10/22 23:09 Room Air PG Care Time/CCT Total # of Minutes Spent Total Time Spent with Patient: Total time spent is greater than 50% in coordination of care (as documented) at patient's floor/unit and/or counseling patient: Coding Level of Care Code None Diagnoses Renal cell carcinoma C64.9
[2022-07-11] MEDS: LEVOTHYROXINE SODIUM 50 MCG TABLET PO SCH (08:22)
[2022-07-11] MEDS: LACTATED RINGER'S 1,000 ML IV SCH (08:22)
[2022-07-11] MEDS: TAMSULOSIN HCL 0.4 MG CAP PO SCH (08:23)
[2022-07-11] MEDS: CALCIUM CARBONATE 500 MG CHEWABLE TAB PO PRN (08:24)
[2022-07-11] MEDS: DOCUSATE SODIUM 100 MG CAP PO SCH ×2 (08:24→20:01)
--- NOTE | 2022-07-11 09:01 | XRay Report ---
KUB HISTORY: NG tube placement. COMPARISON: KUB 07/10/2022. FINDINGS: Nasogastric tube is been advanced and now resides within the gastric antrum. There are low lung volumes. Multiple dilated gas-filled loops of bowel are again noted within the upper abdomen. N o renal calculi. No ureteral calculi. No pneumoperitoneum or pneumatosis. IMPRESSION: Nasogastric tube terminates in the distal stomach. Persistent gaseous distention of the large and sma ll bowel again noted. ACT 112: Negative or not required by law. Electronically signed by: Berny Brice M.D. 07/11/2022 9:00 AM
[2022-07-11 10:05] LABS: Basophils # (auto) 0.01 K/uL (0-0.2); Basophils % (auto) 0.2 %; Eosinophils # (auto) 0.07 K/uL (0-0.50); Eosinophils % (auto) 1.4 %; Hematocrit (blood only) 29.6 % (40.1-51.0); Hemoglobin 10.1 g/dl (14.0-18.0); Immature Granulocytes # (auto) 0.04 K/uL (0.00-0.02); Immature Granulocytes % (auto) 0.8 %; Lymphocytes # (auto) 0.81 K/uL (1.2-3.4); Lymphocytes % (auto) 16.4 %; Mean Corpuscular Hemoglobin 29.3 pg (25.0-34.0); Mean Corpuscular Hgb Conc 34.1 g/dL (32.0-36.0); Mean Corpuscular Volume 85.8 fL (80.0-100.0); Mean Platelet Volume 9.6 fL (9.4-12.4); Monocytes # (auto) 0.72 K/uL (0.24-0.82); Monocytes % (auto) 14.5 %; Neutrophils % (auto) 66.7 %; Platelet Count 291 K/uL (130-400); RDW Coefficient of Variation 12.8 % (11.5-14.5); RDW Standard Deviation 39.1 fL (36.4-46.3); Red Blood Count 3.45 M/uL (4.63-6.08); White Blood Count 4.95 K/ul (4.8-10.8)
[2022-07-11 10:34] LABS: BUN Creatinine Ratio 18.7 (10-20); Calcium 8.5 mg/dl (8.5-10.1); Creatinine Clr Calc Pharmacy 59.8 ml/min; Est GFR (African American) 56.6 ml/min; Est GFR (Non-African American) 48.8 ml/min; Potassium 3.8 mmol/L (3.5-5.1)
[2022-07-11] MEDS: PANTOprazole 40 MG TAB PO SCH (11:37)
[2022-07-11] MEDS: oxyCODONE HCL IR 5 MG TAB (IMMEDIATE RELEASE) PO PRN (22:10)
[2022-07-12] MEDS: ONDANSETRON INJ 2 MG/ML 2 ML VIAL IV PRN (05:26)
--- NOTE | 2022-07-12 06:20 | Communication Note ---
Date of Service: July 12, 2022 Was notified by nurse this morning at approximately 6:00 AM the patient was complaining of some nausea. I visited with the patient at bedside. He is known to myself as he had a postoperative ileus over the past several days requiring NG tube. Patient appeared to have return of bowel function and his NG tube was discontinued yesterday. At the time of my visit the patient's abdomen is moderately distended and tympanic to percussion. The patient reports some generalized discomfort with palpation of his abdomen. He does report that he is passing flatus and had a bowel movement over the last shift but he does have some intermittent nausea. The RN also reported the patient had hematuria prior to the start of evening shift at approximately 7:[address] García was notified and patient's subcutaneous heparin (which he was receiving for DVT prophylaxis) was discontinued. The nurse notes that this morning before she notified me he was able to void a small amount of dark/tea colored urine. Patient was subsequently bladder scan for about 283 cc of urine. The patient notes at this time he does not feel as though his bladder is full and he does not feel the need to void at this time. He does report he has a history of an enlarged prostate and he often has to urinate 2 times in the morning to completely empty his bladder. Due to the patient's reported nausea and his abdominal exam we will check a KUB. In addition due to the noted hematuria yesterday we will check a CBC and a chemistry profile.
[2022-07-12] MEDS: LEVOTHYROXINE SODIUM 50 MCG TABLET PO SCH ×2 (07:06→08:34)
[2022-07-12 07:15] LABS: Hematocrit (blood only) 30.7 % (40.1-51.0); Hemoglobin 10.3 g/dl (14.0-18.0); Mean Corpuscular Hemoglobin 28.9 pg (25.0-34.0); Mean Corpuscular Hgb Conc 33.6 g/dL (32.0-36.0); Mean Platelet Volume 9.6 fL (9.4-12.4); Platelet Count 329 K/uL (130-400); RDW Coefficient of Variation 12.6 % (11.5-14.5); RDW Standard Deviation 39.8 fL (36.4-46.3); Red Blood Count 3.57 M/uL (4.63-6.08); White Blood Count 5.78 K/ul (4.8-10.8)
--- NOTE | 2022-07-12 07:18 | Urology Progress Note ---
Date of Service July 12, 2022 Assessment & Plan (1) Renal cell carcinoma: (2) Benign localized prostatic hyperplasia with lower urinary tract symptoms (LUTS): Plan Status post left robotic partial nephrectomy Excellent progress yesterday but took a step back overnight KUB today reviewed and discussed as still has distended small bowel Labs are pending If any significant change in labs or failure to progress today, will likely obtain a CT to ensure no urine leak or other issue contributing to his prolonged ileus Admission and Anticipated Discharge Date Admission Date: July 05, 2022 Subjective Made excellent progress yesterday numerous bowel movements Significant flatus Abdominal discomfort was drastically improved, unfortunately took a step back overnight and became distended again and somewhat mildly nauseated Also experienced some hematuria overnightthis has now resolved Labs are currently pending for today Physical Exam Physical Exam: Stable ecchymosis of the left flank and back Abdomen moderately distended, not as severe as several days ago but worse than yesterday Incisions appropriate Results & Data ([facility]) Vital Signs (Past 12 Hours) Vital Signs Temp Pulse Resp BP BP Pulse Ox O2 Del Method 07/12/22 06:26 36.8 C 84 15 133/83 91 Room Air 07/12/22 03:23 37.3 C 91 H 20 145/84 H 91 Room Air 07/11/22 23:01 37.4 C 95 H 20 149/81 H 91 Room Air 07/11/22 19:35 37.3 C 92 H 18 152/83 H 91 Room Air PG Care Time/CCT Total # of Minutes Spent Total Time Spent with Patient: Total time spent is greater than 50% in coordination of care (as documented) at patient's floor/unit and/or counseling patient: Coding Level of Care Code None Diagnoses Renal cell carcinoma C64.9 Benign localized prostatic hyperplasia with lower urinary tract symptoms (LUTS) N40.1
--- NOTE | 2022-07-12 07:38 | XRay Report ---
XR KUB/Abdomen 1 view CLINICAL HISTORY: ileus TECHNIQUE: 1 view of the abdomen was obtained. Comparison: Comparison is made to abdomen radiograph 07/11/2022 FINDINGS: Interval removal of enteric tube. Mild degenerative changes are seen. Multiple dilated loops of gas-d istended large and small bowel are again seen. A moderate amount of stool is noted within the large b owel. IMPRESSION: Overall appearance is similar to prior exam with gaseous distention of large and small bowel. ACT 112: Negative or not required by law. Electronically signed by: Gilbert Rapp M.D. 07/12/2022 7:37 AM
[2022-07-12 07:40] LABS: Basophils # (auto) 0.02 K/uL (0-0.2); Basophils % (auto) 0.3 %; Eosinophils # (auto) 0.13 K/uL (0-0.50); Eosinophils % (auto) 2.2 %; Immature Granulocytes # (auto) 0.19 K/uL (0.00-0.02); Immature Granulocytes % (auto) 3.3 %; Lymphocytes % (auto) 15.6 %; Monocytes % (auto) 10.4 %; Neutrophils # (auto) 3.94 K/uL (1.4-6.5); Neutrophils % (auto) 68.2 %; Polychromasia 1+
[2022-07-12 07:42] LABS: BUN Creatinine Ratio 18.2 (10-20); Calcium 8.6 mg/dl (8.5-10.1); Creatinine Clr Calc Pharmacy 60.8 ml/min; Est GFR (African American) 57.5 ml/min; Est GFR (Non-African American) 49.6 ml/min; Potassium 3.9 mmol/L (3.5-5.1)
[2022-07-12] MEDS: DOCUSATE SODIUM 100 MG CAP PO SCH (08:21)
[2022-07-12] MEDS: PANTOprazole 40 MG TAB PO SCH (08:22)
[2022-07-12] MEDS: TAMSULOSIN HCL 0.4 MG CAP PO SCH (08:22)
--- NOTE | 2022-07-15 07:46 | Discharge Summary ---
Date of Service July 15, 2022 Admission HPI Per Admitting Provider Incidentally discovered left renal mass presenting for robotic partial nephrectomy Principal Diagnosis Renal cell carcinoma Discharge Data Allergies Allergy/AdvReac Type Severity Reaction Status Date / Time Penicillins Allergy Intermediate HIVES Verified 07/05/22 10:20 Consultations 07/06/22 13:34 Consult Hospitalist Routine Procedures Performed Operation Date: 06/03/22 08:05 <No data on this case meets the specified criteria> Operation Date: 07/05/22 11:25 Actual Procedures p Robotic Laparoscopic Assisted Partial Nephrectomy - Left(Left) - Destin García MD Hospital Course (1) Renal cell carcinoma: Patient presented for left robotic partial nephrectomy secondary to an incidentally discovered large left lower pole renal mass Details of the procedure as dictated previously and operative report Recovery was somewhat slower than expected because of prolonged postoperative ileus We manage this expectantly and ultimately he turned a corner on postoperative day 5 We continued to keep him in the hospital until postoperative day 6 and then he was discharged home in stable condition He did have an NG tube briefly on day 3 and 4 He was moving his bowels, tolerating a diet, feeling well prior to discharge home Labs were stable Total Time Total Time Spent Total Time Spent (In Minutes): 45 Discharge Plan Discharge Items Patient Disposition: Home - Self-Care Reason For Visit: Renal mass s/p partial nephrectomy Discharge Diagnosis: Renal mass s/p partial nephrectomy Activity: Per Instructions section Lifting: No more than 10 pounds Bathing Comment: Okay to shower after discharge, no tub bath or soaking Sexual Activity: Wait until after follow-up appointment Exercise/Sports: Wait until after follow-up appointment Driving/Machine Use: No driving while taking prescription pain medication Non-emergency contact: Surgeon and Urologist Call non-emergency contact if: your pain is not controlled, your pain is worsening, you have a fever, your temperature is above 101, your wound has increased redness, your wound has increased drainage and your wound pain has increased Follow-up/Referrals: Destin García MD [Physician] - 07/27/22 9:00 am Roberto Paredes DO [Primary Care Provider] - 07/19/22 8:20 am Diet: Regular Addtl Attending Provider Instructions: Please take all medications as prescribed and keep all follow-ups as scheduled. Please call our office at [phone] with any questions, concerns or need to reschedule appointments for any reason. We are happy to assist you. You may resume taking your aspirin 1 week from today (July 19). Recovering at home: We recommend having someone with you for the first few days after surgery to help care for you. It is okay to shower tomorrow. Please avoid swimming, bathing or using hot tub until incisions are well healed. Avoid driving until you are not requiring pain medication any further. Walk at least a few times a day. Increase your distance, as you feel able. Stairs in your home are okay. Please avoid strenuous or sexual activity until your follow-up. We recommend using stool softener (i.e. Colace) to prevent constipation and straining, especially the first two weeks post operatively. Call [facility] at [phone] if you experience: Chest pain or trouble breathing (call [phone] or go to the hospital). Fever of 101F or higher or severe nausea/vomiting Symptoms of infection at incision site, including redness or swelling, warmth, or bad-smelling drainage Pain that is not controlled with medicines Pending Studies at Discharge: Yes Studies:: Pathology Stand-Alone Forms: [facility], Smoking Cessation Medications and DC Order Prescriptions: New docusate sodium [Colace] 100 mg capsule 100 mg PO BID Qty: 30 0RF Rx Instructions: Take twice daily for 2 weeks, then as needed thereafter Continued silodosin 8 mg capsule 8 mg PO DAILY Qty: 90 3RF Rx Instructions: must administer with a meal/food sildenafil 100 mg tablet 100 mg PO DAILY PRN (Reason: sexual activity) Qty: 20 11RF Rx Instructions: administer 30 minutes to 4 hours before activity levothyroxine 50 mcg tablet 50 mcg PO QAM aspirin 81 mg Tablet 81 mg PO QAM Discharge Orders: Discharge Order (Routine); Ordered 07/12/22 Ordered By: Mimi Sanchez Admission Data Admit Date/Time: 07/05/22 16:25 Attending Provider: Destin García Admit Provider: Destin García Primary Care Provider: Roberto Paredes Other Providers: Case Johnson ; Mimi Sarah ; Mio Arevalo Robert R. ; Donato Renae ; Benjamin Kuo ; Usama Castellano ; Haleigh Kowalski ; Yahaira Hernandez ; Dwayne Wong ; Saray King ; Gianni Perez ; Brian Stark ; Willa Lennon ; Dianne Duckworth ; Claudia Elaine ; Wilber Cade ; All Pillai ; Mimi Benitez ; Sriram Gonzalez ; Harvinder Cuadra ; Mio Syed ; Hedy Sandra ; Helene Peterson ; Ash Meyer ; Keely Best ; Gabriel Farrell ; Lida Alan ; Donato Nguyen ; Ayan Gar ; Sahil Quach ; Anastasiia Patterson ; Pineda Pisano Other Interventions: Discharge Summary Assessment (RN) Last Done: 07/12/22 15:55 Coding Level of Care Code D/C DAY MANAGEMENT >30 MINS Diagnoses Renal cell carcinoma C64.9
== END 2022-07-12 16:53 | disposition home or self-care (01) ==
LOC: ASU 09:54 → 3N 16:25 → INTOOBSV 16:25 → 2W 07-06 13:36